=== PATIENT | male | born 1975 | race Caucasian/White ===

== ENCOUNTER 2020-09-06 09:41 | Outpatient (REF) | payer BC, SELFPAY ==
[2020-09-06 21:40] LABS: ALT 50 U/L (16-63); AST 24 U/L (15-37); Albumin 3.9 g/dL (3.4-5.0); Alkaline Phosphatase 58 U/L (46-116); Anion Gap 8.3 mmol/L (3-11); BUN 15 mg/dL (7-18); Bilirubin, Total 0.8 mg/dL (0.2-1.0); CO2 26.7 mmol/L (21.0-32.0); CREATININE 1.05 mg/dL (0.70-1.30); Calcium 8.5 mg/dL (8.5-10.1); Calculated LDL 108 mg/dL (<100); Chloride 104 mmol/L (98-107); Cholesterol 174 mg/dL (<200); Glucose 119 mg/dL (74-106); HDL Cholesterol 48 mg/dL (40-60); Potassium 4.2 mmol/L (3.5-5.1); Sodium 139 mmol/L (136-145); Total Protein 7.2 g/dL (6.4-8.2); Triglyceride 94 mg/dL (<150)
[2020-09-07 18:00] LABS: PSA, Screening 0.3 ng/mL (0.0-2.5)
== END 2020-09-06 10:01 ==
LOC: NCHCN 09:41
PROVIDERS: PCP Nurse Practitioner Family; Visit Provider Nurse Practitioner Family
DX: Z00.00 Encounter for general adult medical examination without abnormal findings (principal); Z13.220 Encounter for screening for lipoid disorders; Z12.5 Encounter for screening for malignant neoplasm of prostate
CPT/HCPCS: 80053; 80061; 84153

== ENCOUNTER 2020-09-22 16:45 | Outpatient (REF) | payer BC, SELFPAY ==
[2020-09-22 22:45] LABS: Hemoglobin A1C 5.7 % (<5.7)
== END 2020-09-22 17:05 ==
LOC: NCHCN 16:45
PROVIDERS: PCP Nurse Practitioner Family; Visit Provider Nurse Practitioner Family
DX: Z00.00 Encounter for general adult medical examination without abnormal findings (principal); E66.9 Obesity, unspecified
CPT/HCPCS: 83036

== ENCOUNTER 2021-02-16 08:40 | Outpatient (REF) | payer BC, SELFPAY ==
[2021-02-16 14:36] LABS: Hemoglobin A1C 5.5 % (<5.7)
== END 2021-02-16 08:41 | disposition home or self-care (01) ==
LOC: NCHCN 08:40
PROVIDERS: PCP Nurse Practitioner Family; Visit Provider Nurse Practitioner Family
DX: Z00.00 Encounter for general adult medical examination without abnormal findings (principal); R73.03 Prediabetes
CPT/HCPCS: 83036

== ENCOUNTER 2021-09-08 08:26 | Outpatient (REF) | payer BC, SELFPAY ==
[2021-09-08 15:17] LABS: Calculated LDL 101 mg/dL (<100); Cholesterol 173 mg/dL (<200); HDL Cholesterol 55 mg/dL (40-60); Triglyceride 88 mg/dL (<150)
== END 2021-09-08 08:27 | disposition home or self-care (01) ==
LOC: NCHCN 08:26
PROVIDERS: PCP Nurse Practitioner Family; Visit Provider Nurse Practitioner Family
DX: Z00.00 Encounter for general adult medical examination without abnormal findings (principal)
CPT/HCPCS: 80061

== ENCOUNTER 2023-04-04 09:17 | Outpatient (REF) | payer BC, SELFPAY ==
[2023-04-04 15:13] LABS: Hemoglobin A1C 5.6 % (<5.7)
[2023-04-04 15:29] LABS: ALT 33 U/L (16-63); AST 21 U/L (15-37); Albumin 3.6 g/dL (3.4-5.0); Alkaline Phosphatase 65 U/L (46-116); Anion Gap 6.1 mmol/L (3-11); BUN 19 mg/dL (7-18); Bilirubin, Total 0.8 mg/dL (0.2-1.0); CO2 28.9 mmol/L (21.0-32.0); Calcium 8.6 mg/dL (8.5-10.1); Chloride 108 mmol/L (98-107); Estimated GFR 94.59 (mL/min/1.73m2); Glucose 114 mg/dL (74-106); Potassium 4.2 mmol/L (3.5-5.1); Sodium 143 mmol/L (136-145); Total Protein 7.2 g/dL (6.4-8.2)
== END 2023-04-04 09:18 | disposition home or self-care (01) ==
LOC: NCHCN 09:17
PROVIDERS: PCP Nurse Practitioner Family; Visit Provider Family Medicine
DX: Z00.00 Encounter for general adult medical examination without abnormal findings (principal); R73.03 Prediabetes; E66.8 Other obesity
CPT/HCPCS: 80053; 83036

== ENCOUNTER 2024-04-08 11:52 | Outpatient (REF) | payer BC, SELFPAY ==
[2024-04-08 15:07] LABS: ALT 37 U/L (16-63); AST 19 U/L (15-37); Albumin 3.7 g/dL (3.4-5.0); Alkaline Phosphatase 73 U/L (46-116); Anion Gap 5.8 mmol/L (3-11); BUN 16 mg/dL (7-18); CO2 31.2 mmol/L (21.0-32.0); Chloride 106 mmol/L (98-107); Glucose 125 mg/dL (74-106); Potassium 4.4 mmol/L (3.5-5.1); Sodium 143 mmol/L (136-145); Total Protein 7.3 g/dL (6.4-8.2)
[2024-04-08 15:11] LABS: Hemoglobin A1C 5.7 % (<5.7)
== END 2024-04-08 11:53 | disposition home or self-care (01) ==
LOC: NCHCN 11:52
PROVIDERS: PCP Nurse Practitioner Family; Visit Provider Family Medicine
DX: R73.03 Prediabetes (principal); Z00.00 Encounter for general adult medical examination without abnormal findings
CPT/HCPCS: 80053; 83036

== ENCOUNTER 2024-04-22 17:24 | Outpatient (REF) | payer BC, SELFPAY | END 2024-04-22 17:25 | disposition home or self-care (01) | LOC: NCHCN 17:24 | PROVIDERS: PCP Nurse Practitioner Family; Visit Provider Family Medicine | DX: N50.82 Scrotal pain (principal); R82.998 Other abnormal findings in urine | CPT/HCPCS: 87086 ==

== ENCOUNTER 2024-07-04 10:26 | Outpatient (CLI) | payer BC, SELFPAY ==
--- NOTE | 2024-07-04 | DI.RAD_ITS ---
Exam(s) XR SACRUM COCCYX EXAM: XR SACRUM COCCYX clinical the lung were not were supposed now and 339 right a CLINICAL HISTORY: Of the ED. Two there the or right stable TECHNIQUE: 2D digital imaging was performed. COMPARISON: No exams were available for comparison FINDINGS: BONES: No acute fracture is present. No bony destructive lesion is seen. JOINTS: No dislocation present. SI joints and pubic symphysis appear intact. The hip joint spaces are maintained. SOFT TISSUE: Normal. IMPRESSION: Unremarkable radiographs of the sacrum and coccyx. DATA REPOSITORY: RADIATION DOSE DELIVERED:
== END 2024-07-04 10:46 ==
LOC: DI 10:26
PROVIDERS: PCP Nurse Practitioner Family; Visit Provider Physician Assistant Medical
DX: M53.3 Sacrococcygeal disorders, not elsewhere classified (principal)
CPT/HCPCS: 72220